=== PATIENT | female | born 1995 | race Caucasian/White ===

== ENCOUNTER 2017-08-12 15:27 | Emergency (ER) | payer OTHER ==
[~2017-08-12] VITALS: Ht 160 cm; Wt 72.6 kg
[~2017-08-12 15:27] MED LIST: CYCLOBENZAPRINE5 MG PO; HYDROCODONE-APA1 TA1 PO; IBUPROFEN 800800 MG PO; NORCO 5-325 TA1 EACH PO; PYRIDIUM200 M2 PO
[2017-08-12] MEDS ORDERED: BIRTH CONTROL (15:43)
[2017-08-12 16:15] LABS: ABSOLUTE BASOPHILS 0.1 thou/uL (0.0-0.2); ABSOLUTE LYMPHOCYTES 2.1 thou/uL (0.8-5.3); ABSOLUTE NEUTROPHILS 6.7 thou/uL (1.6-8.1); BASOPHILS 0.5 %; EOSINOPHILS 0.4 %; HEMATOCRIT 41.8 % (37.0-47.0); HEMOGLOBIN 14.5 gm/dL (12.0-15.0); MCH 30.3 pg (26.0-34.0); MCHC 34.6 g/dL (28.0-37.0); MCV 87.4 fL (80.0-100.0); MONOCYTES 10.2 %; MPV 8.1 fl. (7.2-11.1); NUCLEATED RBCS 0 /100WBC; PLATELET COUNT* 289 thou/uL (150-400); POLYS 67.9 %; RBC 4.79 mil/uL (4.20-5.00); RDW-CV 12.7 % (10.5-14.5); WBC 9.8 thou/uL (4.0-11.0)
[2017-08-12 16:29] LABS: CREATININE 0.9 mg/dL (0.6-1.3); POTASSIUM 3.7 mmol/L (3.5-5.1)
[2017-08-12 16:34] LABS: ALBUMIN 3.9 g/dL (3.4-5.0); TOTAL BILIRUBIN 0.6 mg/dL (<0.1-1.0); TOTAL PROTEIN 7.3 g/dL (6.4-8.2)
[2017-08-12] MEDS ORDERED: TRAMADOL 50 MG50 MG PO (17:12)
[2017-08-12] MEDS ORDERED: DOXYCYCLINE MO100 M1 PO (17:12)
[2017-08-12] MEDS ORDERED: NAPROSYN500 MG PO (17:12)
[2017-08-12 17:13] LABS: ESR (SEDRATE) 1 mm/hr (0-20)
[2017-08-12 17:32] VITALS: BP 112/70
[2017-08-12 17:36] LABS: URINE BILIRUBIN NEGATIVE (Negative); URINE BLOOD NEGATIVE (Negative); URINE CLARITY CLEAR; URINE COLOR YELLOW; URINE GLUCOSE-RANDOM NEGATIVE (Negative); URINE KETONES TRACE (Negative); URINE LEUKOCYTES-REFLEX NEGATIVE (Negative); URINE NITRITE-REFLEX NEGATIVE (Negative); URINE PROTEIN NEGATIVE (Negative); URINE SPECIFIC GRAVITY >= 1.030 (1.005-1.030); URINE UROBILINOGEN 0.2 E.U./dl (0.2-1.0)
== END 2017-08-12 17:33 | disposition home or self-care (01) ==
LOC: M.ERS 15:27
PROVIDERS: Physician Assistant
DX: N83.201 Unspecified ovarian cyst, right side (principal); N80.9 Endometriosis, unspecified; N73.9 Female pelvic inflammatory disease, unspecified; F17.210 Nicotine dependence, cigarettes, uncomplicated

== ENCOUNTER 2018-12-31 15:54 | Emergency (ER) | payer OTHER ==
[~2018-12-31] VITALS: Ht 165.1 cm; Wt 63.5 kg
[~2018-12-31 15:54] MED LIST changes: +BIRTH CONTROL; +DOXYCYCLINE MO100 M1 PO; +NAPROSYN500 MG PO; +TRAMADOL 50 MG50 MG PO
[2018-12-31 16:51] VITALS: BP 119/87
== END 2018-12-31 16:53 | disposition home or self-care (01) ==
LOC: M.ERS 15:54
DX: S01.01XA Laceration without foreign body of scalp, initial encounter (principal); F17.210 Nicotine dependence, cigarettes, uncomplicated; W22.8XXA Striking against or struck by other objects, initial encounter; Y92.89 Other specified places as the place of occurrence of the external cause; Y93.89 Activity, other specified; Y99.8 Other external cause status

== ENCOUNTER 2021-01-10 17:39 | Emergency (ER) | payer OTHER ==
[~2021-01-10] VITALS: Ht 162.6 cm; Wt 77.1 kg
[2021-01-10 18:10] LABS: URINE BILIRUBIN NEGATIVE (Negative); URINE BLOOD NEGATIVE (Negative); URINE CLARITY CLEAR; URINE COLOR YELLOW; URINE GLUCOSE-RANDOM NEGATIVE (Negative); URINE KETONES NEGATIVE (Negative); URINE LEUKOCYTES-REFLEX NEGATIVE (Negative); URINE NITRITE-REFLEX NEGATIVE (Negative); URINE PROTEIN NEGATIVE (Negative); URINE UROBILINOGEN 0.2 E.U./dl (0.2-1.0)
[2021-01-10] MEDS ORDERED: VISTARIL 25 MG25 M1 PO (18:45)
[2021-01-10 19:10] VITALS: BP 124/70
--- NOTE | 2021-01-11 16:07 | EKG ---
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[id number] Requested By: Rosa Gutiérrez Order Number: [id number] MD: Cam Rinaldi Measurements Intervals [place] Rate: 105 P: 54 CT: 198 QRS: 66 QRSD: 85 T: 2 QT: 343 QTc: 454 Interpretive Statements Sinus tachycardia Borderline prolonged CT interval Borderline T abnormalities, inferior leads No previous ECG available for comparison Electronically Signed On 01-11-2021 16:07:29 CDT by Cam Rinaldi [email or web address] <ELECTRONICALLY SIGNED> By: Cam Rinaldi MD, [facility] 01/11/21 1607 175 50 Cam Rinaldi MD, [facility] /EPI
== END 2021-01-10 19:11 | disposition home or self-care (01) ==
LOC: M.ERS 17:39
PROVIDERS: Physician Assistant
DX: F41.9 Anxiety disorder, unspecified (principal); N89.8 Other specified noninflammatory disorders of vagina; R42 Dizziness and giddiness; R35.0 Frequency of micturition; H53.8 Other visual disturbances; F17.210 Nicotine dependence, cigarettes, uncomplicated